=== PATIENT | male | born 1990 | race African-American/Black ===

== ENCOUNTER 2018-01-03 04:24 | Inpatient (IN) | payer OTHER ==
[~2018-01-03] VITALS: Ht 160 cm; Wt 69.3 kg
[2018-01-03 05:12] LABS: HEMATOCRIT 45.9 % (38.0-50.0); HEMOGLOBIN 16.4 G/DL (12.5-16.6); MCH 30.8 PG (29.0-34.0); MCHC 35.7 G/DL (30.0-36.0); MCV 86.1 FL (86-99); RBC DIS.WIDTH-CV 11.6 % (11.8-14.6); RBC DIS.WIDTH-SD 36.7 % (39-53); RED BLOOD COUNT 5.33 M/uL (4.00-5.50); WHITE BLOOD COUNT 11.5 K/uL (4.1-10.2)
[2018-01-03 05:20] LABS: ALBUMIN 4.7 g/dL (3.2-4.8); CHLORIDE 99 mEq/L (99-109); POTASSIUM 4.6 mEq/L (3.7-5.4); SODIUM 138 mEq/L (136-147)
[2018-01-03 05:23] LABS: GLUCOSE 99 mg/dL (70-99); TOTAL PROTEIN 8.4 g/dL (6.4-8.3)
[2018-01-03 05:26] LABS: ALKALINE PHOSPHATASE 86 IU/L (3-129)
[2018-01-03 05:27] LABS: GFR ESTIMATE (CALCULATED) > 59 mL/min/ (58.99-99999); UREA NITROGEN (BUN) 10 mg/dL (9-23)
[2018-01-03 05:28] LABS: AST (GOT) 24 IU/L (2-34)
[2018-01-03 05:29] LABS: ALT (GPT) 17 IU/L (3-49)
[2018-01-03 05:30] LABS: LIPASE 11 U/L (1.0-51.0)
[2018-01-03 06:23] LABS: PLAT.SUFFICIENCY ADEQUATE; PLATELET COUNT 224 K/uL (156-360)
[2018-01-03] MEDS ORDERED: MOTRIN800 MG PO (11:44)
[2018-01-03] MEDS ORDERED: LYRICA25 MG PO (11:44)
[2018-01-03 16:34] VITALS: BP 120/68
[2018-01-03 23:43] VITALS: BP 120/70
[2018-01-04 06:51] LABS: MCH 30.7 PG (29.0-34.0); MCHC 34.5 G/DL (30.0-36.0); MCV 89.1 FL (86-99); PLATELET COUNT 171 K/uL (156-360); RBC DIS.WIDTH-CV 11.9 % (11.8-14.6); RBC DIS.WIDTH-SD 38.2 % (39-53); RED BLOOD COUNT 4.49 M/uL (4.00-5.50); WHITE BLOOD COUNT 7.8 K/uL (4.1-10.2)
[2018-01-04 06:57] LABS: HEMOGLOBIN 13.8 G/DL (12.5-16.6)
[2018-01-04 07:12] VITALS: BP 118/77
[2018-01-04 07:13] LABS: CHLORIDE 103 MEQ/L (99-109); CREATININE 0.9 MG/DL (0.6-1.3); GFR ESTIMATE (CALCULATED) > 59 mL/min/ (58.99-99999); GLUCOSE 92 mg/dL (70-99); POTASSIUM 3.9 MEQ/L (3.7-5.4); SODIUM 143 MEQ/L (136-147); UREA NITROGEN (BUN) 7 mg/dL (9-23)
[2018-01-04 15:56] VITALS: BP 121/72
[2018-01-05] VITALS: BP 113/59
[2018-01-05 07:39] VITALS: BP 104/55
[2018-01-05 16:25] VITALS: BP 112/65
[2018-01-05 23:47] VITALS: BP 120/66
[2018-01-06 05:52] LABS: BASOPHIL (%) 0.5 % (0-1); EOSINOPHIL (%) 6.1 % (0-5); EOSINOPHIL COUNT 0.3 K/uL (0-0.3); HEMATOCRIT 37.5 % (38.0-50.0); HEMOGLOBIN 13.4 G/DL (12.5-16.6); IMMATURE GRANULOCYTE (%) 0.2 % (0.0-0.7); LYMPHOCYTE COUNT 1.2 K/uL (1.0-2.8); MCH 30.8 PG (29.0-34.0); MCHC 35.7 G/DL (30.0-36.0); MCV 86.2 FL (86-99); MONOCYTE (%) 10.5 % (3-12); MONOCYTE COUNT 0.4 K/uL (0-0.8); NEUTROPHIL (%) 53.7 % (45-76); NEUTROPHIL COUNT 2.2 K/uL (1.8-6.4); PLATELET COUNT 195 K/uL (156-360); RBC DIS.WIDTH-CV 11.2 % (11.8-14.6); RBC DIS.WIDTH-SD 35.4 % (39-53); RED BLOOD COUNT 4.35 M/uL (4.00-5.50); WHITE BLOOD COUNT 4.1 K/uL (4.1-10.2)
[2018-01-06 06:29] LABS: CHLORIDE 107 MEQ/L (99-109); CREATININE 0.8 MG/DL (0.6-1.3); GFR ESTIMATE (CALCULATED) > 59 mL/min/ (58.99-99999); GLUCOSE 93 mg/dL (70-99); POTASSIUM 3.4 MEQ/L (3.7-5.4); SODIUM 143 MEQ/L (136-147); UREA NITROGEN (BUN) 2 mg/dL (9-23)
[2018-01-06 08:24] VITALS: BP 119/77
[2018-01-06 16:04] VITALS: BP 130/74
[2018-01-07 00:07] VITALS: BP 117/74
[2018-01-07 12:59] VITALS: BP 133/76
[2018-01-07] MEDS ORDERED: POLYETHYLENE GL17 GM PO (13:04)
[2018-01-07] MEDS ORDERED: HYDROCODON-ACE1 EAC7 PO (13:04)
[2018-01-07] MEDS ORDERED: DOCUSATE SODIU100 MG PO (13:04)
== END 2018-01-07 14:38 | DRG 390 ==
LOC: EME 04:24 → EDOF 09:32 → 5SOUTH 09:32 → ENRESERV 09:33 → 5SOUTH 15:27
PROVIDERS: Emergency Medicine; Internal Medicine; Physician Assistant
DX: K56.50 Intestinal adhesions [bands], unspecified as to partial versus complete obstruction (principal); Z90.49 Acquired absence of other specified parts of digestive tract; Z93.3 Colostomy status
CPT/HCPCS: 74018; 74019; 74177; 80048; 80053; 83605; 83690; 85025; 85027; 99281; 99285; J1170; J1650; J2270; J2405; J7030; J7042

== ENCOUNTER 2018-03-12 19:57 | Emergency (ER) | payer OTHER ==
[~2018-03-12] VITALS: Ht 160 cm; Wt 63.5 kg
[~2018-03-12 19:57] MED LIST: DOCUSATE SODIU100 MG PO; HYDROCODON-ACE1 EAC7 PO; LYRICA25 MG PO; MOTRIN800 MG PO; POLYETHYLENE GL17 GM PO
[2018-03-12 21:08] LABS: BASOPHIL (%) 0.4 % (0-1); BASOPHIL COUNT 0.1 K/uL (0-0.1); EOSINOPHIL (%) 3.5 % (0-5); EOSINOPHIL COUNT 0.6 K/uL (0-0.3); HEMATOCRIT 22.2 % (38.0-50.0); HEMOGLOBIN 8.1 G/DL (12.5-16.6); IMMATURE GRANULOCYTE (%) 1.4 % (0.0-0.7); LYMPHOCYTE (%) 17.5 % (15-42); LYMPHOCYTE COUNT 2.8 K/uL (1.0-2.8); MCH 31.5 PG (29.0-34.0); MCHC 36.5 G/DL (30.0-36.0); MCV 86.4 FL (86-99); MONOCYTE (%) 9.7 % (3-12); MONOCYTE COUNT 1.6 K/uL (0-0.8); NEUTROPHIL (%) 67.5 % (45-76); NEUTROPHIL COUNT 10.8 K/uL (1.8-6.4); NRBC (%) 0.7 /100 WBC (0-0); RBC DIS.WIDTH-SD 36.1 % (39-53); RED BLOOD COUNT 2.57 M/uL (4.00-5.50)
[2018-03-12 21:17] LABS: PLATELET COUNT 391 K/uL (156-360)
[2018-03-12 21:19] LABS: ALBUMIN 3.7 g/dL (3.2-4.8)
[2018-03-12 21:20] LABS: CHLORIDE 98 mEq/L (99-109); POTASSIUM 4.5 mEq/L (3.7-5.4); SODIUM 134 mEq/L (136-147)
[2018-03-12 21:22] LABS: GLUCOSE 98 mg/dL (70-99); TOTAL PROTEIN 6.6 g/dL (6.4-8.3)
[2018-03-12 21:24] LABS: TOTAL BILIRUBIN 0.4 mg/dL (0.0-1.0)
[2018-03-12 21:25] LABS: ALKALINE PHOSPHATASE 61 IU/L (3-129)
[2018-03-12 21:26] LABS: CREATININE 0.7 mg/dL (0.6-1.3); GFR ESTIMATE (CALCULATED) > 59 mL/min/ (58.99-99999)
[2018-03-12 21:27] LABS: AST (GOT) 24 IU/L (2-34); UREA NITROGEN (BUN) 17 mg/dL (9-23)
[2018-03-12 21:29] LABS: ALT (GPT) 44 IU/L (3-49); LIPASE 86 U/L (1.0-51.0)
[2018-03-12 21:45] LABS: APPEARANCE CLEAR ((CLEAR)); BILIRUBIN NEGATIVE; BLOOD NEGATIVE; COLOR YELLOW ((YELLOW)); GLUCOSE (STRIP) NEGATIVE; KETONES NEGATIVE; LEUKOCYTES NEGATIVE; NITRITE NEGATIVE; PROTEIN (STRIP) NEGATIVE; SPECIFIC GRAVITY 1.024 (1.000-1.030); UCUL ADDED? NO
[2018-03-13 05:13] VITALS: BP 119/55
== END 2018-03-13 05:15 | disposition short-term general hospital (02) ==
LOC: EME 19:57
PROVIDERS: Emergency Medicine
DX: R10.84 Generalized abdominal pain (principal); D64.9 Anemia, unspecified; K92.2 Gastrointestinal hemorrhage, unspecified; Z87.19 Personal history of other diseases of the digestive system; R56.9 Unspecified convulsions; F41.9 Anxiety disorder, unspecified; F32.9 Major depressive disorder, single episode, unspecified; Z93.3 Colostomy status; Z98.890 Other specified postprocedural states; Z90.49 Acquired absence of other specified parts of digestive tract
CPT/HCPCS: 74177; 80053; 81003; 83605; 83690; 85025 91; 99281; 99285; C9113; J2405; J3010; J7030